=== PATIENT | female | born 1955 | race Caucasian/White ===

== ENCOUNTER 2022-03-19 09:34 | Emergency (ER) | payer MEDICARE ==
[2022-03-19 10:16] LABS: BASOPHILS # (AUTO) 0.1 10^3/uL (0.0-0.1); BASOPHILS % (AUTO) 1.2 %; EOSINOPHILS # (AUTO) 0.1 10^3/uL (0.0-0.7); EOSINOPHILS % (AUTO) 2.2 %; HGB - HEMOGLOBIN 14.9 g/dL (12.0-16.0); LYMPHOCYTES % (AUTO) 30.1 %; MEAN CORPUSCULAR HEMOGLOBIN 29.4 pg (27.0-31.0); MEAN CORPUSCULAR HGB CONC 33.1 g/dL (32.0-36.0); MEAN CORPUSCULAR VOLUME 88.8 fL (81.0-99.0); MONOCYTES # (AUTO) 0.5 10^3/uL (0.0-1.0); MONOCYTES % (AUTO) 7.9 %; NEUTROPHILS # (AUTO) 3.8 10^3/uL (1.5-6.6); NEUTROPHILS % (AUTO) 58.4 %; PLT - PLATELET COUNT 329 10^3/uL (130-450); RED BLOOD COUNT 5.07 10^6/uL (4.20-5.40); RED CELL DISTRIBUTION WIDTH 12.9 % (12.0-15.0); WHITE BLOOD COUNT 6.5 x10^3/uL (4.8-10.8)
--- NOTE | 2022-03-19 10:18 | XRAY Report ---
PROCEDURE: Chest 1 View X-Ray INDICATIONS: Chest pain TECHNIQUE: One view of the chest was acquired. COMPARISON: None FINDINGS: Surgical changes and devices: None. Lungs and pleura: No pleural effusions or pneumothorax. Lungs are clear. Mediastinum: Mediastinal contours appear normal. Heart size is normal. Bones and chest wall: No suspicious bony lesions. Overlying soft tissues appear unremarkable. IMPRESSION: No acute pulmonary process. Reviewed by: Yashira Salmeron MD on 03/19/2022 10:17 AM PDT Approved by: Yashira Salmeron MD on 03/19/2022 10:17 AM PDT Station ID: [id number]
[2022-03-19 10:30] LABS: ALBUMIN 4.3 g/dL (3.2-5.5); ALBUMIN/GLOBULIN RATIO 1.1 (1.0-2.2); BILIRUBIN,TOTAL 0.9 mg/dL (0.2-1.0); CALCIUM 9.5 mg/dL (8.5-10.3); CREATININE 0.9 mg/dL (0.4-1.0); POTASSIUM 4.5 mmol/L (3.5-5.0); TOTAL PROTEIN 8.1 g/dL (6.7-8.2)
--- NOTE | 2022-03-19 12:52 | ED Physician Documentation ---
PD HPI CHEST PAIN - Stated complaint Stated Complaint: CP/WEAKNESS - Chief complaint Chief Complaint: Cardiac - History obtained from History obtained from: Patient - History of Present Illness Timing - details: Gradual onset Pain level max: 1 Pain level now: 1 Location: Substernal Radiation: No: Jaw, Neck, Back, Abdominal, Left upper extremity, Right upper extremity Associated symptoms: No: Shortness of air, Diaphoresis, Nausea, Vomiting, Palpitations, Cough - Additional information Additional information: Patient is a 66-year-old female who presents to the emergency department stating that she has been under a lot of stress recently. She states over the past 3 to 4 days she has felt of vague pressure in her chest. Nothing seems to make it better or worse. Has been fairly constant. She states that it is a very light pressure. Nonradiating. No history of cardiac disease. Nothing makes it better or worse. No shortness of air, nausea, vomiting, palpitations. She states she occasionally feels slightly dizzy when she stands up quickly. Review of Systems Constitutional: denies: Fever, Chills Respiratory: denies: Cough GI: denies: Abdominal Pain, Nausea, Vomiting, Diarrhea Skin: denies: Rash Musculoskeletal: denies: Neck pain, Back pain Neurologic: denies: Headache PD PAST MEDICAL HISTORY - Past Medical History Psych: Depression - Present Medications Home Medications: Ambulatory Orders Medication Instructions Recorded Confirmed Sertraline HCl [Zoloft] 100 mg PO DAILY 03/19/22 03/19/22 - Allergies Allergies/Adverse Reactions: Allergies Allergy/AdvReac Type Severity Reaction Status Date / Time No Known Drug Allergies Allergy Verified 03/19/22 09:53 - Living Situation Living Arrangement: reports: At home - Social History Does the pt have substance abuse?: No - Family History Family history: reports: Non contributory PD ED PE NORMAL - Vitals Vital signs reviewed: Yes - General General: Alert and oriented X 3, No acute distress, Well developed/nourished - HEENT HEENT: PERRL, Moist mucous membranes - Neck Neck: Supple, no meningeal sign - Cardiac Cardiac: RRR, No murmur, Strong equal pulses - Respiratory Respiratory: No respiratory distress, Clear bilaterally - Abdomen Abdomen: Soft, Non tender, Non distended - Derm Derm: Warm and dry, No rash - Extremities Extremities: No edema, No calf tenderness / cord - Neuro Neuro: Alert and oriented X 3 - Psych Psych: Normal mood, Normal affect Results - Vitals Vitals: Vital Signs - 24 hr 03/19/22 03/19/22 09:47 13:12 Temperature 35.9 C L 36.5 C Heart Rate 78 64 Respiratory 20 16 Rate Blood Pressure 163/83 H 150/85 H O2 Saturation 98 99 Oxygen O2 Source Room air - EKG (time done) 0941 Rate: Rate (enter#) (71) Rhythm: NSR [place]: Normal Intervals: Normal [place] QRS: Normal Ischemia: Normal ST segments - Labs Labs: Laboratory Tests 03/19/22 03/19/22 03/19/22 10:12 10:12 10:12 WBC 6.5 RBC 5.07 Hgb 14.9 Hct 45.0 MCV 88.8 MCH 29.4 MCHC 33.1 RDW 12.9 Plt Count 329 MPV 9.0 Neut # (Auto) 3.8 Lymph # (Auto) 2.0 [place] # (Auto) 0.5 Eos # (Auto) 0.1 Baso # (Auto) 0.1 Absolute Nucleated RBC 0.00 Nucleated RBC % 0.0 Sodium 137 Potassium 4.5 Chloride 103 Carbon Dioxide 26 Anion Gap 8.0 BUN 18 Creatinine 0.9 Estimated GFR (MDRD) 63 L Glucose 101 H Calcium 9.5 Total Bilirubin 0.9 AST 14 ALT 14 Alkaline Phosphatase 64 Troponin I High Sens 2.7 Total Protein 8.1 Albumin 4.3 Globulin 3.8 Albumin/Globulin Ratio 1.1 Lipase 38 - Rads (name of study) cxr Radiology: Final report received, EMP read contemporaneously, See rad report PD MEDICAL DECISION MAKING - ED course Complexity details: reviewed results, re-evaluated patient, considered differential (No ST elevation IA, no aortic dissection, no PE, no tension pneumothorax, no aortic aneurysm), d/w patient ED course: 66-year-old female presents the emergency department with vague chest pressure over the past several days. Nothing seems to make it better or worse. Has been under a lot of stress and anxiety at home. No acute findings on chest x-ray, EKG, laboratory testing. We will have her follow-up with her doctor for cardiac stress test. No recent travel. No leg swelling. Symptoms do not seem consistent with acute coronary syndrome or unstable angina at this time. Patient counseled regarding signs and symptoms for which I believe and urgent re-evaluation would be necessary. Patient with good understanding of and agreement to plan and is comfortable going home at this time This document was made in part using voice recognition software. While efforts are made to proofread this document, sound alike and grammatical errors may occur. Departure - Departure Disposition: Home, Self Care Clinical Impression: Chest pain Qualifiers: Chest pain type: unspecified Qualified Code(s): R07.9 - Chest pain, unspecified Condition: Good Instructions: ED Chest Pain NonCardiac Follow-Up: your,doctor in 1 week [Other] Comments: Please follow-up with your doctor for further care. Please return if you worsen. Your chest x-ray does not show any acute abnormalities today. Your laboratory testing is normal. Your EKG does not show any abnormalities as well. You can try Tylenol and/or Motrin as needed for pain. You should follow-up with your doctor for a cardiac stress test
[2022-03-19 13:13] VITALS: BP 150/85
== END 2022-03-19 13:18 | disposition home or self-care (01) ==
LOC: ED 09:34
DX: R07.9 Chest pain, unspecified (principal)
CPT/HCPCS: 36415; 80053; 83690; 84484; 85025; 93005; 99284

== ENCOUNTER 2023-09-28 10:07 | Emergency (ER) | payer MEDICARE ==
--- NOTE | 2023-09-28 10:35 | ED Physician Documentation ---
PD HPI ABD PAIN - Stated complaint Stated Complaint: LLQ PX - Chief complaint Chief Complaint: Abd Pain - History obtained from History obtained from: Patient - History of Present Illness Timing - onset: How many days ago (6) Timing - duration: Days (6) Timing - details: Gradual onset, Still present Quality: Cramping, Sharp, Pain Location: LLQ Improved by: Laying still Worsened by: Moving, Position, Palpation Associated symptoms: No: Fever, Nausea, Vomiting, Diarrhea, Constipation Similar symptoms before: Has not had sx before Recently seen: Not recently seen - Additional information Additional information: Previously well 68-year-old Anali Augustine presents to the emergency department today with a weeklong history of left lower quadrant abdominal pain. She awoke Sunday morning with this pain in her left lower quadrant and has persisted. She has a family history of diverticulitis and she called the [facility] advice line had a televisit consistent with the possibility of diverticulitis. She has been taking Tylenol and Advil and has had a change in diet as well and despite this her pain is worse this morning and she presents to the emergency department for evaluation. She does not have fever she is able to stand and walk she has worsening of her pain with movement and palpation. She has had some black stool out after taking Pepto-Bismol. Review of Systems Constitutional: denies: Fever Eyes: denies: Decreased vision Ears: denies: Ear pain Nose: denies: Rhinorrhea / runny nose, Congestion Throat: denies: Sore throat Cardiac: denies: Chest pain / pressure, Palpitations Respiratory: denies: Dyspnea, Cough GI: reports: Abdominal Pain, Bloody / black stool. denies: Nausea, Vomiting, Constipation, Diarrhea : denies: Dysuria, Frequency PD PAST MEDICAL HISTORY - Past Medical History Cardiovascular: None Respiratory: None Neuro: None Endocrine/Autoimmune: None GI: None SAFETY PROFESSIONAL: None : None HEENT: None Psych: Depression Musculoskeletal: None Derm: None - Past Surgical History Past Surgical History: Yes General: Cholecystectomy Ortho: Other - Present Medications Home Medications: Ambulatory Orders Medication Instructions Recorded Confirmed Sertraline HCl [Zoloft] 100 mg PO DAILY 03/19/22 09/28/23 Ciprofloxacin HCl [Cipro] 500 mg PO BID #14 tablet 09/28/23 metroNIDAZOLE [Flagyl] 500 mg PO BID 7 Days #14 tablet 09/28/23 - Allergies Allergies/Adverse Reactions: Allergies Allergy/AdvReac Type Severity Reaction Status Date / Time No Known Drug Allergies Allergy Verified 09/28/23 10:14 - Social History Does the pt smoke?: No Smoking Status: Never smoker Does the pt drink ETOH?: Yes Does the pt have substance abuse?: No PD ED PE NORMAL - Vitals Vital signs reviewed: Yes (Hypertensive) - General General: Alert and oriented X 3, No acute distress, Well developed/nourished - HEENT HEENT: Atraumatic, PERRL, EOMI - Neck Neck: Supple, no meningeal sign, No bony TTP - Cardiac Cardiac: RRR, No murmur - Respiratory Respiratory: No respiratory distress, Clear bilaterally - Abdomen Abdomen: Normal bowel sounds, Soft, Non distended, No organomegaly, Other (Specific left lower quadrant point tenderness. 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, No motor deficit, No sensory deficit, Normal speech Eye Opening: Spontaneous Motor: Obeys Commands Verbal: Oriented GCS Score: 15 - Psych Psych: Normal mood, Normal affect Results - Vitals Vitals: Vital Signs - 24 hr 09/28/23 09/28/23 10:10 12:44 Temperature 35.8 C L Heart Rate 79 76 Respiratory 16 96 H Rate Blood Pressure 141/89 H 139/96 H O2 Saturation 100 17 L Oxygen O2 Source Room air - Labs Labs: Laboratory Tests 09/28/23 09/28/23 09/28/23 10:20 10:35 10:35 WBC 7.8 RBC 4.67 Hgb 13.6 Hct 41.8 MCV 89.5 MCH 29.1 MCHC 32.5 RDW 12.7 Plt Count 304 MPV 9.2 Neut # (Auto) 5.0 Lymph # (Auto) 1.8 [place] # (Auto) 0.6 Eos # (Auto) 0.2 Baso # (Auto) 0.1 Absolute Nucleated RBC 0.00 Nucleated RBC % 0.0 Sodium 137 Potassium 3.9 Chloride 105 Carbon Dioxide 25 Anion Gap 7.0 BUN 8 Creatinine 0.8 Estimated GFR (MDRD) 72 L Glucose 98 Calcium 9.4 Total Bilirubin 0.6 AST 11 ALT 10 Alkaline Phosphatase 70 Total Protein 7.4 Albumin 4.0 Globulin 3.4 Albumin/Globulin Ratio 1.2 Lipase 15 Urine Color YELLOW Urine Clarity CLEAR Urine pH 5.5 Ur Specific [place] >=1.030 H Urine Protein NEGATIVE Urine Glucose (UA) NEGATIVE Urine Ketones NEGATIVE Urine Occult Blood NEGATIVE Urine Nitrite NEGATIVE Urine Bilirubin SMALL H Urine Urobilinogen 0.2 (NORMAL) Ur Leukocyte Esterase NEGATIVE Ur Microscopic Review NOT INDICATED Urine Culture Comments NOT INDICATED - Rads (name of study) CT ab/pel Relevant Findings:: Prelim report reviewed (Impression: 1. Acute uncomplicated sigmoid diverticulitis. Mild diffuse hepatic steatosis.), EMP independent interpretation of test PD Medical Decision Making - ED course Complexity details: reviewed results, re-evaluated patient, considered differential, d/w patient Reviewed Lab Results: We reviewed a complete blood count showing a normal white blood cell count normal hemoglobin hematocrit and platelets chemistry showed normal electrolytes normal kidney and liver function and urinalysis shows concentrated urine.I interpreted these laboratory studies to indicate that despite having acute diverticulitis this is a relatively benign case and the patient is mildly dehydrated. ED course: 68-year-old Anali Augustine presents to the emerged part with persistent left lower quadrant abdominal pain and a family history of diverticulitis. She was treated conservatively with this and she is having progressive symptoms. For this reason we will treat her. She had a CAT scan done today which demonstrates uncomplicated sigmoid diverticulitis. Will place her on Cipro and Flagyl. Departure - Departure Disposition: 01 Home, Self Care Clinical Impression: Dehydration, Diverticulitis Instructions: ED Dehydration, ED Diverticulitis Follow-Up: RAKESH SAENZ MD [Primary Care Provider] - Prescriptions: Ciprofloxacin HCl [Cipro] 500 mg PO BID #14 tablet metroNIDAZOLE [Flagyl] 500 mg PO BID 7 Days #14 tablet Comments: Anali, today we did find that you had uncomplicated diverticulitis. We will treat this with 2 antibiotics ciprofloxacin and Flagyl and I have E [facility] in [place]. The expectation with treatment is slow and steady improvement in your pain and resolution of your symptoms. Forms: PCP List
[2023-09-28 10:45] LABS: BILIRUBIN,URINE SMALL (NEGATIVE); GLUCOSE, URINE (UA) NEGATIVE (NEGATIVE); KETONES,URINE (UA) NEGATIVE (NEGATIVE); LEUKOCYTE ESTERASE, URINE NEGATIVE (NEGATIVE); NITRITE,URINE NEGATIVE (NEGATIVE); OCCULT BLOOD,URINE NEGATIVE (NEGATIVE); PH,URINE 5.5 PH (5.0-7.5); PROTEIN,URINE NEGATIVE (NEGATIVE); UROBILINOGEN,URINE 0.2 (NORMAL) E.U./dL (NORMAL)
[2023-09-28 10:45] LABS: BASOPHILS # (AUTO) 0.1 10^3/uL (0.0-0.1); BASOPHILS % (AUTO) 0.9 %; EOSINOPHILS # (AUTO) 0.2 10^3/uL (0.0-0.7); EOSINOPHILS % (AUTO) 3.1 %; HCT - HEMATOCRIT 41.8 % (37.0-47.0); HGB - HEMOGLOBIN 13.6 g/dL (12.0-16.0); LYMPHOCYTES # (AUTO) 1.8 10^3/uL (1.5-3.5); LYMPHOCYTES % (AUTO) 23.7 %; MEAN CORPUSCULAR HEMOGLOBIN 29.1 pg (27.0-31.0); MEAN CORPUSCULAR HGB CONC 32.5 g/dL (32.0-36.0); MEAN CORPUSCULAR VOLUME 89.5 fL (81.0-99.0); MEAN PLATELET VOLUME 9.2 fL (7.9-10.8); MONOCYTES # (AUTO) 0.6 10^3/uL (0.0-1.0); NEUTROPHILS % (AUTO) 64.2 %; PLT - PLATELET COUNT 304 10^3/uL (130-450); RED BLOOD COUNT 4.67 10^6/uL (4.20-5.40); RED CELL DISTRIBUTION WIDTH 12.7 % (12.0-15.0); WHITE BLOOD COUNT 7.8 x10^3/uL (4.8-10.8)
[2023-09-28 10:46] LABS: CLARITY,URINE CLEAR (CLEAR)
[2023-09-28 10:54] LABS: ALBUMIN/GLOBULIN RATIO 1.2 (1.0-2.2); BILIRUBIN,TOTAL 0.6 mg/dL (0.2-1.0); CALCIUM 9.4 mg/dL (8.5-10.3); CREATININE 0.8 mg/dL (0.6-1.3); POTASSIUM 3.9 mmol/L (3.5-4.5); TOTAL PROTEIN 7.4 g/dL (6.4-8.9)
[2023-09-28] MEDS: SODIUM CHLORIDE 0.9% 1,000 ML IV STA (11:12)
[2023-09-28] MEDS ORDERED: iohexoL-300 100 ML VIAL ONE (11:29)
--- NOTE | 2023-09-28 12:07 | CT Report ---
PROCEDURE: Abdomen/Pelvis W INDICATIONS: LLQ pain CONTRAST: 100ml omni 300 TECHNIQUE: After the administration of intravenous contrast, a CT scan of the abdomen and pelvis was performed. Images were recorded and evaluated at appropriate window settings. Reformats: coronal and sagittal. F or radiation dose reduction, the following was used: automated exposure control, adjustment of mA and /or kV according to patient size. COMPARISON: None. FINDINGS: Image quality: Diagnostic. Lower chest: Unremarkable. Liver: No solid mass. Gallbladder and biliary mild diffuse hepatic steatosis. Tree: Surgically absent. No biliary dilation, accounting for post-cholecystectomy state. Spleen: No splenomegaly. Pancreas: No pancreatic ductal dilation. Adrenals: No adrenal nodule. Kidneys and ureters: No hydronephrosis. No renal cystic lesion which requires follow up. No solid mas s. Stomach, bowel and peritoneum: Acute uncomplicated sigmoid diverticulitis with inflammatory change in the subjacent fat. No free air or free fluid or abscess cavity noted. Lymph nodes: No central or retroperitoneal adenopathy. Vessels: No infrarenal aortic aneurysm. PELVIS Reproductive organs: Unremarkable. Bladder: No abnormal wall thickening, accounting for underdistention. Pelvic lymph nodes: No pelvic adenopathy by size criteria. Bones: No aggressive osseous abnormality. Other: No significant ventral or inguinal hernia. IMPRESSION: 1. Acute uncomplicated sigmoid diverticulitis. 2. Mild diffuse hepatic steatosis. Reviewed by: Mayo Verma MD on 09/28/2023 12:05 PM PDT Approved by: Mayo Verma MD on 09/28/2023 12:05 PM PDT Station ID: [id number]
[2023-09-28] MEDS: iohexoL-300 100 ML VIAL IVP ONE (13:04)
[2023-09-28 13:28] VITALS: BP 130/65; O2SAT 99
== END 2023-09-28 13:24 | disposition home or self-care (01) ==
LOC: ED 10:07
DX: E86.0 Dehydration (principal); K57.32 Diverticulitis of large intestine without perforation or abscess without bleeding
CPT/HCPCS: 36415; 74177; 80053; 81003; 83690; 85025; 96360; 96361; 99284; Q9967; 81001; 87086

== ENCOUNTER 2023-12-01 19:10 | Emergency (ER) | payer MEDICARE ==
[2023-12-01 19:34] LABS: BASOPHILS # (AUTO) 0.1 10^3/uL (0.0-0.1); BASOPHILS % (AUTO) 0.6 %; EOSINOPHILS % (AUTO) 0.3 %; HCT - HEMATOCRIT 41.9 % (37.0-47.0); HGB - HEMOGLOBIN 13.5 g/dL (12.0-16.0); LYMPHOCYTES # (AUTO) 2.2 10^3/uL (1.5-3.5); LYMPHOCYTES % (AUTO) 17.5 %; MEAN CORPUSCULAR HEMOGLOBIN 28.7 pg (27.0-31.0); MEAN CORPUSCULAR HGB CONC 32.2 g/dL (32.0-36.0); MEAN PLATELET VOLUME 9.3 fL (7.9-10.8); MONOCYTES # (AUTO) 0.9 10^3/uL (0.0-1.0); MONOCYTES % (AUTO) 7.3 %; NEUTROPHILS # (AUTO) 9.2 10^3/uL (1.5-6.6); NEUTROPHILS % (AUTO) 74.1 %; PLT - PLATELET COUNT 297 10^3/uL (130-450); RED BLOOD COUNT 4.71 10^6/uL (4.20-5.40); RED CELL DISTRIBUTION WIDTH 13.2 % (12.0-15.0); WHITE BLOOD COUNT 12.5 x10^3/uL (4.8-10.8)
[2023-12-01 19:51] LABS: ALBUMIN 4.1 g/dL (3.2-5.5); ALBUMIN/GLOBULIN RATIO 1.3 (1.0-2.2); BILIRUBIN,TOTAL 1.2 mg/dL (0.2-1.0); CALCIUM 9.6 mg/dL (8.5-10.3); CREATININE 0.9 mg/dL (0.6-1.3); POTASSIUM 3.9 mmol/L (3.5-4.5); TOTAL PROTEIN 7.2 g/dL (6.4-8.9)
[2023-12-01 20:19] LABS: BILIRUBIN,URINE NEGATIVE (NEGATIVE); GLUCOSE, URINE (UA) NEGATIVE (NEGATIVE); KETONES,URINE (UA) NEGATIVE (NEGATIVE); LEUKOCYTE ESTERASE, URINE NEGATIVE (NEGATIVE); NITRITE,URINE NEGATIVE (NEGATIVE); OCCULT BLOOD,URINE NEGATIVE (NEGATIVE); PH,URINE 5.5 PH (5.0-7.5); PROTEIN,URINE NEGATIVE (NEGATIVE); UROBILINOGEN,URINE 0.2 (NORMAL) E.U./dL (NORMAL)
[2023-12-01 20:38] LABS: CLARITY,URINE CLEAR (CLEAR)
[2023-12-01] MEDS: KETOROLAC 30 MG/ML VIAL IVP STA (20:52)
[2023-12-01] MEDS: SODIUM CHLORIDE 0.9% 1,000 ML IV STA (20:53)
[2023-12-01] MEDS ORDERED: iohexoL-300 100 ML VIAL ONE (21:07)
[2023-12-01] MEDS: iohexoL-300 100 ML VIAL IVP ONE (21:34)
--- NOTE | 2023-12-01 21:49 | ED Physician Documentation ---
PD HPI ABD PAIN - Stated complaint Stated Complaint: ABD PX - Chief complaint Chief Complaint: Abd Pain - History obtained from History obtained from: Patient - Additional information Additional information: Patient is a 68-year-old female with a history of diverticulitis as well as prior cholecystectomy presenting for evaluation of left sided abdominal pain Starting last night. She also reports feeling some chills. She had a headache this morning and took ibuprofen as well as some Tylenol this afternoon. Denies nausea, vomiting, diarrhea. Had stool sometime today. No cough, congestion chest pain or difficulty breathing. Denies dysuria or hematuria. Review of Systems Cardiac: denies: Chest pain / pressure Respiratory: denies: Dyspnea GI: reports: Abdominal Pain. denies: Vomiting, Diarrhea, Bloody / black stool : denies: Dysuria Neurologic: reports: Headache PD PAST MEDICAL HISTORY - Past Medical History Cardiovascular: None Respiratory: None Neuro: None Endocrine/Autoimmune: None GI: None, Diverticulitis RETAIL SALES MANAGER: None : None HEENT: None Psych: Depression Musculoskeletal: None Derm: None - Past Surgical History Past Surgical History: Yes General: Cholecystectomy Ortho: Other - Present Medications Home Medications: Ambulatory Orders Medication Instructions Recorded Confirmed Sertraline HCl [Zoloft] 100 mg PO DAILY 03/19/22 09/28/23 Ciprofloxacin HCl [Cipro] 500 mg PO BID #14 tablet 09/28/23 metroNIDAZOLE [Flagyl] 500 mg PO BID 7 Days #14 tablet 09/28/23 Amox/Clav 875/125 [Augmentin] 1 each PO Q12H #20 tablet 12/01/23 - Allergies Allergies/Adverse Reactions: Allergies Allergy/AdvReac Type Severity Reaction Status Date / Time No Known Drug Allergies Allergy Verified 12/01/23 20:27 - Social History Does the pt smoke?: No Smoking Status: Never smoker Does the pt drink ETOH?: Yes Does the pt have substance abuse?: No PD ED PE NORMAL - General General: Alert and oriented X 3, No acute distress, Well developed/nourished - HEENT HEENT: Atraumatic, Moist mucous membranes, Pharynx benign - Neck Neck: Supple, no meningeal sign - Cardiac Cardiac: RRR - Respiratory Respiratory: No respiratory distress, Clear bilaterally - Abdomen Abdomen: Normal bowel sounds, Soft, Non distended, Other (L sided abdominal tenderness) - Derm Derm: Warm and dry - Neuro Neuro: Normal speech Results - Vitals Vitals: Vital Signs - 24 hr 12/01/23 12/01/23 12/01/23 19:17 21:37 23:16 Temperature 37.2 C 37.1 C Heart Rate 92 96 81 Respiratory 18 17 18 Rate Blood Pressure 141/78 H 135/75 H 139/74 H O2 Saturation 98 99 99 Oxygen O2 Source Room air - Labs Labs: Laboratory Tests 12/01/23 12/01/23 12/01/23 19:28 19:28 19:55 WBC 12.5 H RBC 4.71 Hgb 13.5 Hct 41.9 MCV 89.0 MCH 28.7 MCHC 32.2 RDW 13.2 Plt Count 297 MPV 9.3 Neut # (Auto) 9.2 H Lymph # (Auto) 2.2 [place] # (Auto) 0.9 Eos # (Auto) 0.0 Baso # (Auto) 0.1 Absolute Nucleated RBC 0.00 Nucleated RBC % 0.0 Sodium 136 Potassium 3.9 Chloride 103 Carbon Dioxide 27 Anion Gap 6.0 BUN 10 Creatinine 0.9 Estimated GFR (MDRD) 62 L Glucose 105 H Calcium 9.6 Total Bilirubin 1.2 H AST 18 ALT 18 Alkaline Phosphatase 77 Total Protein 7.2 Albumin 4.1 Globulin 3.1 Albumin/Globulin Ratio 1.3 Lipase 12 Urine Color YELLOW Urine Clarity CLEAR Urine pH 5.5 Ur Specific [place] 1.010 Urine Protein NEGATIVE Urine Glucose (UA) NEGATIVE Urine Ketones NEGATIVE Urine Occult Blood NEGATIVE Urine Nitrite NEGATIVE Urine Bilirubin NEGATIVE Urine Urobilinogen 0.2 (NORMAL) Ur Leukocyte Esterase NEGATIVE Ur Microscopic Review NOT INDICATED Urine Culture Comments NOT INDICATED PD Medical Decision Making - ED course Complexity details: reviewed results, d/w patient Reviewed Lab Results: Patient is a 68-year-old female presenting for evaluation of left-sided abdomi nal pain since yesterday with feeling feverish at home. Labs reviewed including CBC, chemistries, urinalysis and significant for white count of 12,000. CT scan of the abdomen pelvis was obtained demonstrating diverticulitis. No signs of free air or abscess. Patient received IV fluids and Toradol for abdominal pain as well as a headache. Normal neuroexam and no red flag signs or symptoms in regards to her headache. No signs of meningitis. She is feeling better. She is tolerating p.o. Patient agreeable to plan for p.o. antibiotics as well as outpatient follow-up. She is already in the process of scheduling a colonoscopy. She is counseled on concerning symptoms to return for. Departure - Departure Disposition: 01 Home, Self Care Clinical Impression: Diverticulitis, Headache Condition: Stable Instructions: ED Diverticulitis, ED Cephalgia Unspecified Prescriptions: Amox/Clav 875/125 [Augmentin] 1 each PO Q12H #20 tablet Comments: Your CT scan shows that you have diverticulitis. I have sent your antibiotic prescription to [facility] in [place]. Please make sure to follow-up with your primary care provider. Return to the ER if you develop any worsening symptoms such as increased pain, fever or any other concerns. IMPRESSION: Acute uncomplicated diverticulitis involving the proximal descending colon. Forms: PCP List Discharge Date/Time: 12/01/23 23:22
[2023-12-01 21:50] VITALS: O2SAT 99
--- NOTE | 2023-12-01 22:54 | CT Report ---
PROCEDURE: Abdomen/Pelvis W INDICATIONS: L sided abd pain CONTRAST: 100 ML OMNI 300 TECHNIQUE: After the administration of intravenous contrast, a CT scan of the abdomen and pelvis was performed. Images were recorded and evaluated at appropriate window settings. Reformats: coronal and sagittal. F or radiation dose reduction, the following was used: automated exposure control, adjustment of mA and /or kV according to patient size. COMPARISON: CT abdomen pelvis 09/28/2023. FINDINGS: Image quality: Diagnostic. Lower chest: Bibasilar and lingular atelectasis per. Liver: No solid mass. Gallbladder: Surgically absent. Biliary tree: No intrahepatic or extrahepatic dilation, accounting for age. Spleen: No splenomegaly. Pancreas: No pancreatic ductal dilation. Adrenals: No adrenal nodule. Kidneys and ureters: No hydronephrosis. No renal cystic lesion which requires follow up. No solid mas s. Stomach, bowel and peritoneum: Acute uncomplicated diverticulitis of the proximal descending colon wi th adjacent mesenteric fat stranding, for example series 2, image 64. No adjacent free air to suggest perforation. No abscess. No free fluid Lymph nodes: No central or retroperitoneal adenopathy. Vessels: No infrarenal aortic aneurysm. Patent portal vein. PELVIS Reproductive organs: Unremarkable. Bladder: No abnormal wall thickening, accounting for underdistention. Pelvic lymph nodes: No pelvic adenopathy by size criteria. Bones: No aggressive osseous abnormality. Other: No significant ventral or inguinal hernia. IMPRESSION: Acute uncomplicated diverticulitis involving the proximal descending colon. Reviewed by: Clair Toure MD, PhD on 12/01/2023 10:53 PM PDT Approved by: Clair Toure MD, PhD on 12/01/2023 10:53 PM PDT Station ID: [id number]
[2023-12-01] MEDS: AMOX/CLAV 875 MG/125 MG TABLET PO STA (23:15)
[2023-12-01 23:20] VITALS: BP 139/74
== END 2023-12-01 23:22 | disposition home or self-care (01) ==
LOC: ED 19:10
DX: K57.32 Diverticulitis of large intestine without perforation or abscess without bleeding (principal); R51.9 Headache, unspecified
CPT/HCPCS: 36415; 74177; 80053; 81003; 83690; 85025; 96374; 99284; A9270; Q9967; 81001; 87086